=== PATIENT | female | born 1940 | race Caucasian/White ===

== ENCOUNTER → 2018-01-20 12:07 | Outpatient (CLI) | payer OTHER, SELFPAY ==
--- NOTE | 2018-01-20 | DI.CT.S_ITS ---
PROCEDURE: CT CHEST WO CON INDICATIONS: ABNORMAL CHEST XRAY TECHNIQUE: Noncontrast 5 mm thick sections acquired from the pulmonary apices to the posterior costophrenic angles. 7 mm thick coronal and sagittal MIP reformats were then acquired. For radiation dose reduction, the following was used: automated exposure control, adjustment of mA and/or kV according to patient size. COMPARISON: [facility], RG, XR CXR 2V, 01/14/2018, 9:10. FINDINGS: Image quality: Excellent. Lungs and pleura: Atelectasis in the posterior aspect of right upper lobe is seen with adjacent traction bronchiectasis extending along major fissure. There is suggestion of a 8 x 7 mm nodular density in posterior lateral aspect of right upper lobe just anterior to the fissure (series 3 image 16). Scarring/atelectasis in the anterior medial aspect of right middle lobe is also seen with mild adjacent bronchiectasis. Subtle groundglass density nodule measures 4 mm in size in posterior aspect of left upper lobe is seen (series 3 image 18). A 4 mm nodular density is also noted in the anteromedial aspect of left upper lobe (series 3 image 17). Nodular thickening involving lateral aspect of left oblique fissure is seen, measures 6 x 3 mm in size (series 3 image 24). Sub-solid 5 mm nodular density is noted in lateral periphery of right lower lobe (series 3 image 37). 3 mm nodular density in posterior aspect of right lower lobe is also seen (series 3 image 33). Nodular atelectasis in posterior aspect of right lower lobe is seen (series 3 image 30). 5 mm nodular density in the anterior aspect of left lower lobe near left lung base is noted at this level. No pleural effusions or pneumothorax. Central and peripheral airways are patent and normal in caliber. Mediastinum: Heart size is normal. No pericardial effusion. No mediastinal adenopathy by size criteria. Thoracic aorta and central pulmonary arteries are normal in size. Esophagus is normal in caliber. No hiatal hernia. Bones and chest wall: No suspicious bony lesions. No vertebral body compression fractures. No axillary or supraclavicular adenopathy by size criteria. Thyroid gland is within normal limits.. Abdomen: Visualized upper abdominal solid organs and bowel loops appear normal in the absence of contrast. IMPRESSION: 1. Scarring/atelectasis in posterior aspect of right upper and lower lobe as well as anterior aspect of bilateral lung bases. Adjacent traction bronchiectasis are seen in the posterior aspect of right upper lobe along major fissure. 2. Numerous nodular densities scattered in bilateral lung nazario as described above. Based on Fleischner Society recommendation a followup CT study in 3-6 month is recommended. Dictated by: Simon Jarrett M.D. on 01/20/2018 at 14:42 Approved by: Simon Jarrett M.D. on 01/20/2018 at 14:51
== END ==
PROVIDERS: PCP Family Medicine; Visit Provider Family Medicine
DX: R91.8 Other nonspecific abnormal finding of lung field (principal)
CPT/HCPCS: 71250

== ENCOUNTER → 2022-02-26 14:14 | Outpatient (CLI) | payer MEDICARE, SELFPAY ==
--- NOTE | 2022-02-26 14:18 | DI.CT.S_ITS ---
PROCEDURE: CT CHEST WO CON INDICATIONS: follow up to CT from 2018 TECHNIQUE: Noncontrast 5 mm thick sections acquired from the pulmonary apices to the posterior costophrenic angles. 1 mm lung window, 5 mm thick coronal and sagittal and 7 mm axial MIP reformats were then acquired. For radiation dose reduction, the following was used: automated exposure control, adjustment of mA and/or kV according to patient size. COMPARISON: [facility], CT, CT CHEST WO [facility], 01/20/2018, 12:09. FINDINGS: Image quality: Excellent. Lungs and pleura: Bronchiectasis and multifocal scarring and nodularity, particularly along the upper major fissures. There is also nodularity at the lung bases with similar areas of scarring, although not as severe as apices. Findings are progressed compared to 2018. There are areas of suspected air trapping. No pleural effusion or pneumothorax. Mediastinum: Prominent heart size. There are prominent lymph nodes, for example along the right hilum and pretracheal region. These were seen previously. No thoracic aortic aneurysm. Bones and chest wall: Thyroid is within normal limits. No acute or suspicious osseous abnormality. Abdomen: Mild pancreatic atrophy. Nonobstructing left upper pole stone. Small hiatal hernia. IMPRESSION: Progressed fibrotic and nodular lung disease compared to 2018, with suspected areas of air trapping. Leading differential considerations include exposure/occupational related lung diseases and sarcoidosis. Correlate with clinical context. Follow-up high-resolution chest CT is recommended. Dictated by: Arron Vanessa M.D. on 02/26/2022 at 17:27 Approved by: Arron Vanessa M.D. on 02/26/2022 at 17:33
== END ==
PROVIDERS: PCP Physician Assistant Medical; Referring Provider Physician Assistant Medical; Visit Provider Physician Assistant Medical
DX: J47.9 Bronchiectasis, uncomplicated (principal); R91.8 Other nonspecific abnormal finding of lung field; R05.3 Chronic cough
CPT/HCPCS: 71250

== ENCOUNTER → 2022-03-14 09:30 | Outpatient (CLI) | payer MEDICARE, SELFPAY ==
[2022-03-14 19:55] LABS: Alanine Aminotransferase 23 IU/L (<35); Albumin Globulin Ratio 1.1 (1.0-2.8); Alkaline Phosphatase 77 U/L (38-126); Aspartate Aminotransferase 31 IU/L (14-36); Bilirubin Total 0.5 mg/dL (0.2-1.3); Blood Urea Nitrogen 19 mg/dL (7-17); Calcium 9.4 mg/dL (8.4-10.2); Carbon Dioxide 28 mmol/L (22-32); Chloride 103 mmol/L (98-107); Cholesterol 206 mg/dL (140-199); Estimated Glomerular Filt Rate > 60 mL/min (>60); Globulin 3.5 g/dL (1.7-4.1); Glucose 90 mg/dL (80-110); HDL Cholesterol 50 mg/dL (40-60); HEMOLYSIS < 15 (0-50); LDL Cholesterol Calculated 127 mg/dL (<100); Potassium 4.4 mmol/L (3.4-5.1); Sodium 141 mmol/L (137-145); Total Protein 7.5 g/dL (6.3-8.2); Triglycerides 143 mg/dL (35-150)
== END ==
PROVIDERS: PCP Physician Assistant Medical; Visit Provider Physician Assistant Medical
DX: E78.5 Hyperlipidemia, unspecified (principal); I63.312 Cerebral infarction due to thrombosis of left middle cerebral artery
CPT/HCPCS: 80053; 80061

== ENCOUNTER → 2022-04-10 12:53 | Outpatient (CLI) | payer MEDICARE, SELFPAY ==
--- NOTE | 2022-04-10 12:54 | DI.CT.S_ITS ---
PROCEDURE: CT CHEST HIGH RESOLUTION INDICATIONS: abnormal imaging, radiology recomendation, bronchiectasis hx TECHNIQUE: Noncontrast 1.0 and 5.0 mm thick contiguous axial sections from the pulmonary apex to the posterior costophrenic angles, with 7 mm thick coronal and sagittal MIP reformats. 1 mm thick dynamic expiratory images acquired through the upper, mid, and lower lungs. 1.0 mm thick axial sections acquired from the carmen to the posterior costophrenic angles in the prone end-inspiration position. For radiation dose reduction, the following was used: automated exposure control, adjustment of mA and/or kV according to patient size. COMPARISON: [facility], CT, CT CHEST WO CON, 01/20/2018, 12:09. [facility], CT, CT CHEST WO CON, 02/26/2022, 14:24. FINDINGS: Image quality: Excellent. Lungs: Subtle mosaic attenuation was more obvious on prior CT. On dynamic images, some areas of air trapping is noted, for example in the right lower lobe. Bronchiectasis and scarring,, particularly along the fissures again seen. There is also bronchiectasis and scarring most notably in the right middle lobe, along with centrilobular nodularity in the periphery of the right costophrenic angle. Centrilobular nodularity is also seen in the lower lobes bilaterally. No definite peripheral reticulation. No ground-glass opacities. These findings persist on prone images. Pleura: No pleural effusions or pneumothorax. Mediastinum: Small hiatal hernia. Mitral annular calcifications. Prominent mediastinal lymph nodes are not enlarged by size criteria. No thoracic aortic aneurysm. Bones and chest wall: Scattered degenerative changes. No suspicious lesions. Abdomen: Cholelithiasis. Suspected left nonobstructive calculi. There are vascular calcifications. IMPRESSION: Progressed multifocal bronchiectasis and centrilobular nodularity, particularly along the major fissures, right middle lobe, and right lower lobe compared to 2018. These findings are favored to represent chronic waxing waning airway spread of infection related to bronchiectasis. No reticulation or ground-glass opacities to suggest UIP or NSIP. Mosaic attenuation was more obvious on prior imaging, again may be due to small airways disease causing some air trapping. The scarring along the major fissures can sometimes be seen with prior inflammation from sarcoidosis or occupational lung disease, but is overall nonspecific. Correlate with clinical context. Consider future followup to assess for progression and any suspicious pulmonary nodules. ATS 2018 HRCT classification: Consider alternative diagnosis to UIP. Dictated by: Arron Vanessa M.D. on 04/10/2022 at 14:31 Approved by: Arron Vanessa M.D. on 04/10/2022 at 14:45
== END ==
PROVIDERS: PCP Physician Assistant Medical; Referring Provider Physician Assistant Medical; Visit Provider Physician Assistant Medical
DX: J47.9 Bronchiectasis, uncomplicated (principal); K44.9 Diaphragmatic hernia without obstruction or gangrene; I34.81 Nonrheumatic mitral (valve) annulus calcification
CPT/HCPCS: 71250

== ENCOUNTER → 2024-04-15 10:47 | Outpatient (CLI) | payer MEDICARE, SELFPAY ==
--- NOTE | 2024-04-15 10:49 | DI.RAD.S_ITS ---
PROCEDURE: XR DEXA AXIAL SKELETON INDICATIONS: menopause COMPARISON: 09/03/2012. FINDINGS: Lumbar Spine: Bone mineral density 0.787 g/cm2, T score -2.4 there is interval 12 percent decrease in total lumbar spine bone mineral density. Left Hip: Bone mineral density 0.546 g/cm2, T score -3.2. There is interval 12.2 percent decrease in left total hip bone mineral density. Left Femoral Neck: Bone mineral density 0.477 g/cm2, T score -3.3. There is interval 9.8 percent decrease in left femoral neck bone mineral density. Right Hip: Bone mineral density 0.564 g/cm2, T score -3.1. There is interval 15.2 percent decrease in total right hip bone mineral density. Right Femoral Neck: Bone mineral density 0.514 g/cm2, T score -3.0. There is interval 1.4 percent decrease in right femoral neck bone mineral density. Fracture Risk Calculation (when applicable): 10-year fracture risk of a major osteoporotic fracture 26 percent and of a hip fracture 12 percent. (T score greater or equal to -1.0 to: NORMAL) (T score from -1.1 to -2.4: OSTEOPENIA) (T score less than or equal to -2.5: OSTEOPOROSIS) IMPRESSION: Osteoporosis. Follow-up guidelines as follows: Osteoporosis: Consider a repeat DEXA and Vertebral Fracture Assessment (VFA) exam in 2 years or sooner if medically necessary, to reassess this patient's status. Osteopenia: Consider a repeat DEXA in 2-3 years to reassess this patient's status, or if there is a new clinical indication. Normal: Consider a repeat DEXA in 5 years or sooner, or if there is a new clinical indication. All treatment decisions require clinical judgment and consideration of individual patient factors, including patient preferences, comorbidities, previous drug use, risk factors not captured in the FRAX model (e.g., frailty, falls, vitamin D deficiency, increased bone turnover, interval significant decline in bone density ) and possible under- or over-estimation of fracture risk by FRAX. In addition, the NOF Guide recommends that FDA-approved medical therapies be considered in postmenopausal women and men age >= 50 years with a: * Hip or vertebral (clinical or morphometric) fracture * T-score of <=-2.5 at the spine or hip * Ten-year fracture probability by FRAX of >= 3% for hip fracture or >=20% for major osteoporotic fracture. People with diagnosed cases of osteoporosis or at high risk for fracture should have regular bone mineral density tests. For patients eligible for Medicare, routine testing is allowed once every 2 years. The testing frequency can be increased to one year for patients who have rapidly progressing disease, those who are receiving or discontinuing medical therapy to restore bone mass, or have additional risk factors. Dictated by: Simon Jarrett M.D. on 04/15/2024 at 17:12 Approved by: Simon Jarrett M.D. on 04/15/2024 at 17:14
== END ==
PROVIDERS: PCP Family Medicine; Referring Provider Family Medicine; Visit Provider Family Medicine
DX: Z78.0 Asymptomatic menopausal state (principal); M81.0 Age-related osteoporosis without current pathological fracture
CPT/HCPCS: 77080

== ENCOUNTER → 2024-04-27 09:00 | Outpatient (CLI) | payer MEDICARE, SELFPAY ==
[2024-04-27 18:59] LABS: Cholesterol 209 mg/dL (140-199); Glucose 89 mg/dL (80-110); HDL Cholesterol 56 mg/dL (40-60); LDL Cholesterol Calculated 131 mg/dL (<100); Triglycerides 109 mg/dL (35-150)
[2024-04-29 15:27] LABS: Hep C Virus Ab w/Reflex Quant NEGATIVE s/c (NEGATIVE)
== END ==
PROVIDERS: PCP Family Medicine; Visit Provider Family Medicine
DX: Z13.1 Encounter for screening for diabetes mellitus (principal); Z13.220 Encounter for screening for lipoid disorders; Z13.6 Encounter for screening for cardiovascular disorders; Z11.59 Encounter for screening for other viral diseases; M81.0 Age-related osteoporosis without current pathological fracture
CPT/HCPCS: 80061; 82947; 86803

== ENCOUNTER → 2024-05-30 10:42 | Outpatient (CLI) | payer MEDICARE, SELFPAY ==
--- NOTE | 2024-05-30 10:44 | DI.CT.S_ITS ---
PROCEDURE: CT CHEST WO CON INDICATIONS: eval bronchiectasis progression TECHNIQUE: Noncontrast 5 mm thick sections acquired from the pulmonary apices to the posterior costophrenic angles. 1 mm lung window, 5 mm thick coronal and sagittal and 7 mm axial MIP reformats were then acquired. For radiation dose reduction, the following was used: automated exposure control, adjustment of mA and/or kV according to patient size. COMPARISON: [facility], CT, CT CHEST HIGH RESOLUTION, 04/10/2022, 13:10. [facility], CT, CT CHEST WO CON, 02/26/2022, 14:24. [facility], CT, CT CHEST WO CON, 01/20/2018, 12:09. FINDINGS: Image quality: Diagnostic. Thyroid: Within normal limits. Cardiac: Heart size within normal limits. No pericardial effusion. Aorta: Thoracic aortic diameter within normal limits. Pulmonary Artery: Main pulmonary artery diameter within normal limits. Lungs: Persistent multifocal areas of tree-in-bud nodularity, clustered around the areas of traction bronchiectasis (3/100; 3/180; 3/107; 3/85; 3/70). New macro nodules are present, the largest of which is a 10 mm mean axis solid nodule in the superior segment of the right lower lobe (3/99). No honeycombing. No evidence of subpleural sparing. No subpleural reticulation. Pleura: No pneumothorax or pleural effusion. Airways: The trachea and mainstem bronchi are patent. Persistent and mildly increased severity of predominantly central traction bronchiectasis in the distribution of the upper lobes, right middle lobe, and anterior segment of the right lower lobe (3/183; 5/47; 3/91) Lymph Nodes: Persistent mediastinal lymphadenopathy up to 9 mm in the short axis at the right lower paratracheal station (2/30). No discrete hilar or axillary lymphadenopathy. Esophagus: Small hiatal hernia. Bones: No acute osseous abnormality. Upper Abdomen: No acute abnormality. IMPRESSION: Overall, ongoing progression of nonspecific pulmonary and airway findings; consider hypersensitivity pneumonitis in the setting of continued exposure to an inhalational/infectious pathology. Pulmonology referral recommended. Dictated by: Abad Castelan M.D. on 05/30/2024 at 13:57 Approved by: Abad Castelan M.D. on 05/30/2024 at 14:21
== END ==
LOC: CT 10:43
PROVIDERS: PCP Family Medicine; Referring Provider Student in an Organized Health Care Education/Training Program; Visit Provider Student in an Organized Health Care Education/Training Program
DX: J47.9 Bronchiectasis, uncomplicated (principal); K44.9 Diaphragmatic hernia without obstruction or gangrene
CPT/HCPCS: 71250

== ENCOUNTER → 2024-06-08 10:29 | Outpatient (CLI) | payer MEDICARE, SELFPAY | PROVIDERS: PCP Family Medicine; Referring Provider Student in an Organized Health Care Education/Training Program; Visit Provider Student in an Organized Health Care Education/Training Program | DX: J47.1 Bronchiectasis with (acute) exacerbation (principal) | CPT/HCPCS: 87070; 87205 ==

== ENCOUNTER → 2024-10-14 10:41 | Outpatient (CLI) | payer MEDICARE, SELFPAY ==
--- NOTE | 2024-10-14 10:43 | DI.CT.S_ITS ---
PROCEDURE: CT CHEST WO CON INDICATIONS: f/u bronchiectasis s/p treatment TECHNIQUE: Noncontrast 5 mm thick sections acquired from the pulmonary apices to the posterior costophrenic angles. 1 mm lung window, 5 mm thick coronal and sagittal and 7 mm axial MIP reformats were then acquired. For radiation dose reduction, the following was used: automated exposure control, adjustment of mA and/or kV according to patient size. COMPARISON: [facility], CT, CT CHEST WO CON, 05/30/2024, 10:45. FINDINGS: Image quality: Diagnostic. Some images limited by beam hardening artifacts. Lungs and Pleura: Overall there has been some [id number] decrease in bilateral multifocal diffuse reticulonodular densities, tree-in-bud nodularity but still with marked peribronchial thickening, bronchiectasis, adjacent areas of opacification predominantly in the upper lobes, right lower lobe lateral basal. Continued follow-up is needed. Mildly enlarged mediastinal, anterior tracheal, subcarinal and hilar lymph nodes the largest right lobe paratracheal measuring up to 8 millimeters unchanged or slightly decreased. Lower Neck: No enlarged lymph nodes. Thyroid: No thyroid nodules which require sonographic follow up, per consensus guidelines. Bones: Moderate degenerative changes of the lower cervical, thoracic spine with disc space narrowing, osteophytes without CT evidence of fracture, subluxation or central stenosis unchanged. No pneumothorax, no pleural effusion, no pericardial effusion. Heart: Borderline mild cardiomegaly predominantly left ventricular enlargement unchanged. Moderate calcifications of the proximal coronary arteries, aortic arch and and to a lesser degree descending aorta unchanged. Thoracic Vessels: The aorta and pulmonary arteries demonstrate normal size. Esophagus: Small hiatal hernia unchanged. Upper Abdomen: Visualized upper abdomen solid organs and bowel loops appear normal. IMPRESSION: [id number] decreased in reticulonodular densities as discussed above with persistent marked residual bronchiectasis, peribronchial thickening and areas of atelectasis/consolidation. Continued follow-up is needed Dictated by: Kilo Zeng M.D. on 10/14/2024 at 13:08 Approved by: Kilo Zeng M.D. on 10/14/2024 at 13:36
== END ==
LOC: CT 10:42
PROVIDERS: PCP Family Medicine; Referring Provider Family Medicine; Visit Provider Student in an Organized Health Care Education/Training Program
DX: J47.9 Bronchiectasis, uncomplicated (principal); K44.9 Diaphragmatic hernia without obstruction or gangrene; R59.0 Localized enlarged lymph nodes; I25.10 Atherosclerotic heart disease of native coronary artery without angina pectoris; M47.812 Spondylosis without myelopathy or radiculopathy, cervical region; M47.814 Spondylosis without myelopathy or radiculopathy, thoracic region
CPT/HCPCS: 71250